=== PATIENT | male | born 1995 | race Asian ===

== ENCOUNTER 2018-02-23 22:58 | Emergency (ER) | payer OTHER ==
[2018-02-23 23:05] VITALS: BP 132/52
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
== END 2018-02-23 23:39 | disposition home or self-care (01) ==
DX: S30.0XXA Contusion of lower back and pelvis, initial encounter (principal); V17.9XXA Unspecified pedal cyclist injured in collision with fixed or stationary object in traffic accident, initial encounter; Y93.55 Activity, bike riding; Y92.9 Unspecified place or not applicable; Y99.9 Unspecified external cause status